=== PATIENT | female | born 1980 | race Caucasian/White ===

== ENCOUNTER 2016-06-04 13:53 | Emergency (ER) | payer OTHER ==
[~2016-06-04] VITALS: Ht 160 cm; Wt 70.5 kg
[~2016-06-04 13:53] MED LIST: AMITIZA24 MICROGR PO; ANTIVERT25 MG PO; ASCORBIC ACID500 M3 PO; CARAFATE1 GM PO; CYTOTEC200 MCG PO; DEBROX15 ML LEFT EAR; DOXYCYCLINE HY100 M3 PO; ENDOCET 5-3251 EACH PO; FEOSOL325 MG PO; FIORICET,ESG1 TABLET PO; FLONASE16 G1 BOTH NARES; FOLIC ACID1 MG PO; IBUPROFEN800 MG PO; IRON325 M1 PO; KEFLEX500 MG PO; MOTRIN600 MG PO; MOTRIN800 MG PO; MUCUS ER600 MG PO; NORCO 5/3251 TABLET PO; OLANZAPINE2.5 MG PO; PREDNISONE20 MG PO; PRENATAL VITAM1 EAC3 PO; PROMETHAZINE HC25 M1 PO; PROZAC20 MG PO; REGLAN10 MG PO; SEROQUEL12.5 MG PO; THYROID MEDICATION PO; TORADOL10 MG PO; VENTOLIN HFA18 GM IH; ZOFRAN ODT4 MG PO; ZOFRAN4 MG PO; ZYPREXA7.5 MG PO; ZYRTEC10 M2 PO; no home meds
[2016-06-04 14:49] LABS: ADD MIUA? NO; BILIRUBIN NEGATIVE; BLOOD NEGATIVE; GLUCOSE (STRIP) NEGATIVE; KETONES NEGATIVE; LEUKOCYTES NEGATIVE; NITRITE NEGATIVE; PROTEIN (STRIP) NEGATIVE; SPECIFIC GRAVITY 1.016 (1.000-1.030); UROBILINOGEN 0.2 MG/DL (0.2-1.0)
[2016-06-04 14:54] LABS: COLOR LT YELLOW ((YELLOW))
[2016-06-04 14:55] LABS: HEMATOCRIT 35.8 % (36.0-46.0); MCH 26.7 PG (29.0-34.0); MCHC 34.4 G/DL (30.0-36.0); MCV 77.7 FL (83-99); MEAN PLAT.VOLUME 11.2 uM^3 (9.5-12.4); PLATELET COUNT 251 K/uL (156-360); RBC DIS.WIDTH-CV 16.2 % (11.8-14.6); RBC DIS.WIDTH-SD 44.4 % (39-53); RED BLOOD COUNT 4.61 M/uL (3.80-5.20); WHITE BLOOD COUNT 9.3 K/uL (4.1-10.2)
[2016-06-04 14:59] LABS: EOSINOPHIL (%) 1.1 % (0-5); EOSINOPHIL COUNT 0.1 K/uL (0-0.3); IMMATURE GRANULOCYTE (%) 0.1 % (0.0-0.7); IMMATURE GRANULOCYTE COUNT 0.1 K/uL; LYMPHOCYTE COUNT 2.2 K/uL (1.0-2.8); MONOCYTE (%) 7.3 % (3-12); MONOCYTE COUNT 0.7 K/uL (0-0.8); NEUTROPHIL (%) 67.3 % (45-76); NEUTROPHIL COUNT 6.3 K/uL (1.8-6.4)
[2016-06-04 15:04] LABS: CHLORIDE 107 mEq/L (99-109); POTASSIUM 4.7 mEq/L (3.7-5.4); SODIUM 135 mEq/L (136-147)
[2016-06-04 15:06] LABS: GLUCOSE 88 mg/dL (70-99)
[2016-06-04 15:07] LABS: ANION GAP 8 MEQ/L (2-14)
[2016-06-04 15:10] LABS: GFR ESTIMATE (CALCULATED) > 59 mL/min/
[2016-06-04 15:11] LABS: UREA NITROGEN (BUN) 10 mg/dL (9-23)
[2016-06-04 16:45] VITALS: BP 122/84
== END 2016-06-04 16:53 | disposition home or self-care (01) ==
LOC: EME 13:53
PROVIDERS: Physician Assistant
DX: O21.0 Mild hyperemesis gravidarum (principal); Z3A.10 10 weeks gestation of pregnancy; Z87.891 Personal history of nicotine dependence
CPT/HCPCS: 80048; 81003; 84443; 85025; 99281; 99285; J2405; J7030

== ENCOUNTER 2016-07-27 20:41 | Emergency (ER) | payer OTHER ==
[~2016-07-27] VITALS: Ht 160 cm; Wt 70.7 kg
[2016-07-27 21:14] LABS: HEMATOCRIT 35.3 % (36.0-46.0); MCH 27.2 PG (29.0-34.0); MCHC 32.9 G/DL (30.0-36.0); MCV 82.7 FL (83-99); PLATELET COUNT 218 K/uL (156-360); RBC DIS.WIDTH-SD 48.3 % (39-53); RED BLOOD COUNT 4.27 M/uL (3.80-5.20); WHITE BLOOD COUNT 10.8 K/uL (4.1-10.2)
[2016-07-27 21:36] LABS: CHLORIDE 106 mEq/L (99-109); POTASSIUM 3.6 mEq/L (3.7-5.4); SODIUM 136 mEq/L (136-147)
[2016-07-27 21:37] LABS: GLUCOSE 96 mg/dL (70-99)
[2016-07-27 21:39] LABS: ANION GAP 8 MEQ/L (2-14)
[2016-07-27 21:41] LABS: GFR ESTIMATE (CALCULATED) > 59 mL/min/
[2016-07-27 21:42] LABS: UREA NITROGEN (BUN) 9 mg/dL (9-23)
[2016-07-27 22:14] LABS: ADD MIUA? NO; BILIRUBIN NEGATIVE; BLOOD NEGATIVE; COLOR STRAW ((YELLOW)); GLUCOSE (STRIP) NEGATIVE; KETONES NEGATIVE; LEUKOCYTES NEGATIVE; NITRITE NEGATIVE; PROTEIN (STRIP) NEGATIVE; SPECIFIC GRAVITY 1.005 (1.000-1.030); UCUL ADDED? NO; UROBILINOGEN 0.2 MG/DL (0.2-1.0)
[2016-07-27] MEDS ORDERED: ESCITALOPRAM OXA5 MG PO (23:08)
[2016-07-27] MEDS ORDERED: LEVOTHYROXINE75 MCG PO (23:08)
[2016-07-27 23:41] LABS: TOTAL BILIRUBIN 0.5 mg/dL (0.0-1.0)
[2016-07-27 23:42] LABS: ALKALINE PHOSPHATASE 59 IU/L (3-129)
[2016-07-27 23:45] LABS: DIRECT BILIRUBIN 0.2 mg/dL (0.0-0.3)
[2016-07-27 23:46] LABS: LIPASE 11 U/L (1.0-51.0)
[2016-07-28 00:08] LABS: QUANTITATIVE HCG 21138.4 MIU/ML
[2016-07-28 01:18] VITALS: BP 110/75
== END 2016-07-28 01:20 | disposition home or self-care (01) ==
LOC: EME 20:41
DX: O21.8 Other vomiting complicating pregnancy (principal); O99.012 Anemia complicating pregnancy, second trimester; O26.892 Other specified pregnancy related conditions, second trimester; R51 Headache; R42 Dizziness and giddiness; O09.522 Supervision of elderly multigravida, second trimester; Z3A.17 17 weeks gestation of pregnancy; Z87.891 Personal history of nicotine dependence
CPT/HCPCS: 80048; 80076; 81003; 83690; 84702; 85027; 99281; 99285; J2405; J7030

== ENCOUNTER 2016-08-20 09:02 | Emergency (ER) | payer OTHER ==
[~2016-08-20] VITALS: Ht 160 cm; Wt 71.4 kg
[~2016-08-20 09:02] MED LIST changes: +ESCITALOPRAM OXA5 MG PO; +LEVOTHYROXINE75 MCG PO
[2016-08-20 10:12] LABS: ADD MIUA? YES; BILIRUBIN NEGATIVE; BLOOD NEGATIVE; GLUCOSE (STRIP) NEGATIVE; KETONES NEGATIVE; LEUKOCYTES NEGATIVE; NITRITE NEGATIVE; PROTEIN (STRIP) NEGATIVE; SPECIFIC GRAVITY 1.005 (1.000-1.030); UROBILINOGEN 0.2 MG/DL (0.2-1.0)
[2016-08-20 10:13] LABS: COLOR YELLOW ((YELLOW))
[2016-08-20 10:17] LABS: BACTERIA RARE /HPF; EPITHELIAL CELLS RARE /HPF; MUCUS NONE SEEN /LPF; RED BLOOD CELLS 0-5 /HPF (0-5); UCUL ADDED? NO; WHITE BLOOD CELLS 0-5 /HPF (0-5)
[2016-08-20 10:37] LABS: HEMATOCRIT 30.7 % (36.0-46.0); MCH 28.3 PG (29.0-34.0); MCHC 33.2 G/DL (30.0-36.0); MCV 85.3 FL (83-99); PLATELET COUNT 189 K/uL (156-360); RBC DIS.WIDTH-SD 45.8 % (39-53); WHITE BLOOD COUNT 8.4 K/uL (4.1-10.2)
[2016-08-20 10:51] LABS: CHLORIDE 110 mEq/L (99-109); POTASSIUM 3.9 mEq/L (3.7-5.4); SODIUM 138 mEq/L (136-147)
[2016-08-20 10:53] LABS: GLUCOSE 80 mg/dL (70-99)
[2016-08-20 10:54] LABS: ANION GAP 6 MEQ/L (2-14)
[2016-08-20 10:55] LABS: TOTAL BILIRUBIN 0.4 mg/dL (0.0-1.0)
[2016-08-20 10:57] LABS: ALKALINE PHOSPHATASE 49 IU/L (3-129); GFR ESTIMATE (CALCULATED) > 59 mL/min/
[2016-08-20 10:58] LABS: UREA NITROGEN (BUN) 4 mg/dL (9-23)
[2016-08-20 12:57] VITALS: BP 96/71
== END 2016-08-20 12:59 | disposition home or self-care (01) ==
LOC: EME 09:02 → EXP 09:02
PROVIDERS: Nurse Practitioner Family
DX: O99.012 Anemia complicating pregnancy, second trimester (principal); R53.83 Other fatigue; J30.2 Other seasonal allergic rhinitis; Z3A.20 20 weeks gestation of pregnancy; J45.909 Unspecified asthma, uncomplicated; K21.9 Gastro-esophageal reflux disease without esophagitis; E03.9 Hypothyroidism, unspecified; Z87.891 Personal history of nicotine dependence
CPT/HCPCS: 80053; 81003; 84443; 85027; 93005; 99281; 99284; J7030

== ENCOUNTER 2016-09-14 17:31 | Emergency (ER) | payer OTHER ==
[~2016-09-14] VITALS: Ht 160 cm; Wt 74.3 kg
[2016-09-14 18:44] LABS: HEMATOCRIT 33.7 % (36.0-46.0); MCH 29.3 PG (29.0-34.0); MCHC 33.5 G/DL (30.0-36.0); MCV 87.3 FL (83-99); MEAN PLAT.VOLUME 11.3 uM^3 (9.5-12.4); PLATELET COUNT 217 K/uL (156-360); RBC DIS.WIDTH-CV 15.2 % (11.8-14.6); RBC DIS.WIDTH-SD 47.8 % (39-53); RED BLOOD COUNT 3.86 M/uL (3.80-5.20); WHITE BLOOD COUNT 8.4 K/uL (4.1-10.2)
[2016-09-14 18:48] LABS: ADD MIUA? YES; BILIRUBIN NEGATIVE; BLOOD NEGATIVE; COLOR YELLOW ((YELLOW)); GLUCOSE (STRIP) NEGATIVE; KETONES NEGATIVE; LEUKOCYTES NEGATIVE; NITRITE NEGATIVE; PROTEIN (STRIP) NEGATIVE; SPECIFIC GRAVITY 1.008 (1.000-1.030); UROBILINOGEN 0.2 MG/DL (0.2-1.0)
[2016-09-14 18:53] LABS: CHLORIDE 108 mEq/L (99-109); POTASSIUM 3.7 mEq/L (3.7-5.4); SODIUM 137 mEq/L (136-147)
[2016-09-14 18:54] LABS: BACTERIA RARE /HPF; EPITHELIAL CELLS 1+ /HPF; MUCUS TRACE /LPF; RED BLOOD CELLS NONE SEEN /HPF (0-5); UCUL ADDED? NO; WHITE BLOOD CELLS 0-5 /HPF (0-5)
[2016-09-14 18:55] LABS: GLUCOSE 100 mg/dL (70-99)
[2016-09-14 18:56] LABS: ANION GAP 8 MEQ/L (2-14)
[2016-09-14 18:57] LABS: TOTAL BILIRUBIN 0.2 mg/dL (0.0-1.0)
[2016-09-14 18:58] LABS: ALKALINE PHOSPHATASE 64 IU/L (3-129)
[2016-09-14 18:59] LABS: GFR ESTIMATE (CALCULATED) > 59 mL/min/
[2016-09-14 19:00] LABS: UREA NITROGEN (BUN) 7 mg/dL (9-23)
[2016-09-14 19:55] VITALS: BP 110/80
== END 2016-09-14 19:53 | disposition home or self-care (01) ==
LOC: EXP 17:31 → EME 17:31 → EXP 19:53
PROVIDERS: Physician Assistant
DX: O9A.212 Injury, poisoning and certain other consequences of external causes complicating pregnancy, second trimester (principal); R53.83 Other fatigue; R55 Syncope and collapse; R42 Dizziness and giddiness; R51 Headache; R06.02 Shortness of breath; T50.A95A Adverse effect of other bacterial vaccines, initial encounter; O21.8 Other vomiting complicating pregnancy; O99.282 Endocrine, nutritional and metabolic diseases complicating pregnancy, second trimester; E03.9 Hypothyroidism, unspecified; O09.522 Supervision of elderly multigravida, second trimester; Z3A.25 25 weeks gestation of pregnancy; Z87.891 Personal history of nicotine dependence
CPT/HCPCS: 80053; 81003; 85027; 99281; 99284; J2765; J7030

== ENCOUNTER → 2016-10-09 | Outpatient (CLI) | payer OTHER ==
[~2016-10-09] VITALS: Ht 160 cm; Wt 75.0 kg
[~2016-10-09] MED LIST changes: +FEROSUL325 MG PO; +LEVO-T100 MCG PO; +LEXAPRO10 MG PO
[2016-10-09 11:25] VITALS: BP 109/69
== END | disposition home or self-care (01) ==
LOC: IVINF 11:00
DX: Z31.82 Encounter for Rh incompatibility status (principal); Z3A.28 28 weeks gestation of pregnancy; Z67.11 Type A blood, Rh negative
CPT/HCPCS: 96372; J2790

== ENCOUNTER 2016-11-18 05:36 | Emergency (ER) | payer OTHER ==
[~2016-11-18] VITALS: Ht 160 cm; Wt 80.5 kg
[2016-11-18 05:40] VITALS: BP 108/80
[2016-11-19] MEDS ORDERED: IRON325 M1 PO (20:16)
== END 2016-11-18 07:19 | disposition left against medical advice (07) ==
LOC: EME 05:36
DX: O99.283 Endocrine, nutritional and metabolic diseases complicating pregnancy, third trimester (principal); E86.0 Dehydration; R51 Headache; R11.0 Nausea; O09.523 Supervision of elderly multigravida, third trimester; Z3A.33 33 weeks gestation of pregnancy; E03.9 Hypothyroidism, unspecified; Z87.891 Personal history of nicotine dependence
CPT/HCPCS: 80048; 81003; 85027; 99281; 99283

== ENCOUNTER 2016-11-19 11:20 | Outpatient (CLI) | payer OTHER ==
[2016-11-19 11:38] VITALS: BP 112/70
[2016-11-19 13:14] LABS: ADD MIUA? NO; BILIRUBIN NEGATIVE; BLOOD NEGATIVE; COLOR STRAW ((YELLOW)); GLUCOSE (STRIP) NEGATIVE; KETONES NEGATIVE; LEUKOCYTES NEGATIVE; NITRITE NEGATIVE; PROTEIN (STRIP) NEGATIVE; SPECIFIC GRAVITY 1.004 (1.000-1.030); UCUL ADDED? NO; UROBILINOGEN 0.2 MG/DL (0.2-1.0)
[2016-11-19 13:27] LABS: ANION GAP 9 MEQ/L (2-14); CHLORIDE 106 MEQ/L (99-109); POTASSIUM 3.7 MEQ/L (3.7-5.4); SAMPLE HEMOLYSIS CHECK 0; SAMPLE ICTERIC CHECK 0; SAMPLE LIPEMIA CHECK 0; SODIUM 137 MEQ/L (136-147); TOTAL BILIRUBIN 0.4 MG/DL (0.0-1.0)
[2016-11-19 13:29] LABS: EOSINOPHIL (%) 0.6 % (0-5); EOSINOPHIL COUNT 0.1 K/uL (0-0.3); HEMATOCRIT 30.5 % (36.0-46.0); IMMATURE GRANULOCYTE (%) 2.5 % (0.0-0.7); IMMATURE GRANULOCYTE COUNT 0.3 K/uL; INSTRUMENT ABS NEUTROPHIL CT 8.6 K/uL; LYMPHOCYTE COUNT 1.8 K/uL (1.0-2.8); MCH 27.5 PG (29.0-34.0); MCHC 32.5 G/DL (30.0-36.0); MCV 84.7 FL (83-99); MEAN PLAT.VOLUME 11.6 uM^3 (9.5-12.4); MONOCYTE (%) 6.3 % (3-12); MONOCYTE COUNT 0.7 K/uL (0-0.8); NEUTROPHIL COUNT 8.6 K/uL (1.8-6.4); PLATELET COUNT 237 K/uL (156-360); RBC DIS.WIDTH-CV 14.6 % (11.8-14.6); RBC DIS.WIDTH-SD 44.4 % (39-53); WHITE BLOOD COUNT 11.5 K/uL (4.1-10.2)
[2016-11-19 13:33] LABS: ALKALINE PHOSPHATASE 96 IU/L (3-129); GFR ESTIMATE (CALCULATED) > 59 mL/min/; GLUCOSE 115 mg/dL (70-99); UREA NITROGEN (BUN) 7 mg/dL (9-23)
[2016-11-19 15:18] VITALS: BP 98/59
[2016-11-19 16:04] LABS: TROP-I INTERPRETATION NEGATIVE; TROPONIN-I < 0.01 ng/mL (0.0-0.30)
[2016-11-19 18:28] LABS: TROP-I INTERPRETATION NEGATIVE; TROPONIN-I < 0.01 ng/mL (0.0-0.30)
[2016-11-19] MEDS ORDERED: IRON325 M1 PO (20:16)
[2016-11-20 12:21] LABS: CHLAMYDIA TRACHOMATIS NEGATIVE; NEISSERIA GONORRHOEAE NEGATIVE
== END 2016-11-19 20:25 | disposition home or self-care (01) ==
LOC: LDRP-OP 11:20 → 2WEST 11:21
PROVIDERS: Internal Medicine Cardiovascular Disease; Nurse Practitioner
DX: O99.013 Anemia complicating pregnancy, third trimester (principal); D64.9 Anemia, unspecified; O26.893 Other specified pregnancy related conditions, third trimester; Z3A.34 34 weeks gestation of pregnancy; R07.9 Chest pain, unspecified; R06.02 Shortness of breath; R42 Dizziness and giddiness; R94.31 Abnormal electrocardiogram [ECG] [EKG]
CPT/HCPCS: 59025; 71020; 80053; 81003; 83880; 84439; 84443; 84484; 85025; 87491; 87591; 93005; G0378; J7120

== ENCOUNTER 2016-12-10 17:40 | Inpatient (IN) | payer OTHER ==
[~2016-12-10] VITALS: Ht 160 cm; Wt 79.8 kg
[2016-12-10 18:08] VITALS: BP 120/67
[2016-12-10 18:35] LABS: HEMATOCRIT 31.6 % (36.0-46.0); MCH 27.7 PG (29.0-34.0); MCHC 33.5 G/DL (30.0-36.0); MCV 82.7 FL (83-99); MEAN PLAT.VOLUME 10.7 uM^3 (9.5-12.4); PLATELET COUNT 217 K/uL (156-360); RBC DIS.WIDTH-CV 15.2 % (11.8-14.6); RBC DIS.WIDTH-SD 45.8 % (39-53); RED BLOOD COUNT 3.82 M/uL (3.80-5.20); WHITE BLOOD COUNT 11.4 K/uL (4.1-10.2)
[2016-12-10 18:56] VITALS: BP 112/74
[2016-12-10 18:57] LABS: BASOPHIL COUNT 0.1 K/uL (0-0.1); EOSINOPHIL (%) 1.1 % (0-5); EOSINOPHIL COUNT 0.1 K/uL (0-0.3); IMMATURE GRANULOCYTE (%) 2.6 % (0.0-0.7); IMMATURE GRANULOCYTE COUNT 0.3 K/uL; MONOCYTE (%) 8.4 % (3-12); NEUTROPHIL (%) 69.7 % (45-76)
[2016-12-10 19:21] LABS: ANION GAP 12 MEQ/L (2-14); CHLORIDE 104 MEQ/L (99-109); POTASSIUM 3.6 MEQ/L (3.7-5.4); SAMPLE HEMOLYSIS CHECK 0; SAMPLE ICTERIC CHECK 0; SAMPLE LIPEMIA CHECK 0; SODIUM 136 MEQ/L (136-147); TOTAL BILIRUBIN 0.4 MG/DL (0.0-1.0)
[2016-12-10 19:27] LABS: ALKALINE PHOSPHATASE 127 IU/L (3-129); GFR ESTIMATE (CALCULATED) > 59 mL/min/; GLUCOSE 73 mg/dL (70-99); UREA NITROGEN (BUN) 8 mg/dL (9-23)
[2016-12-10] MEDS ORDERED: IBUPROFEN800 MG PO (22:23)
[2016-12-10] MEDS ORDERED: ENDOCET 5-3251 EACH PO (22:23)
[2016-12-11] VITALS (10 sets, daily range): BP systolic 102–124; BP diastolic 59–79
[2016-12-11 06:01] LABS: BASOPHIL COUNT 0.1 K/uL (0-0.1); EOSINOPHIL (%) 0.8 % (0-5); EOSINOPHIL COUNT 0.1 K/uL (0-0.3); HEMATOCRIT 30.2 % (36.0-46.0); IMMATURE GRANULOCYTE (%) 1.3 % (0.0-0.7); IMMATURE GRANULOCYTE COUNT 0.2 K/uL; INSTRUMENT ABS NEUTROPHIL CT 10.6 K/uL; LYMPHOCYTE COUNT 2.2 K/uL (1.0-2.8); MCH 26.5 PG (29.0-34.0); MCHC 32.1 G/DL (30.0-36.0); MCV 82.5 FL (83-99); MEAN PLAT.VOLUME 11.2 uM^3 (9.5-12.4); MONOCYTE (%) 6.8 % (3-12); NEUTROPHIL (%) 74.9 % (45-76); NEUTROPHIL COUNT 10.6 K/uL (1.8-6.4); PLATELET COUNT 206 K/uL (156-360); RBC DIS.WIDTH-CV 15.2 % (11.8-14.6); RBC DIS.WIDTH-SD 45.5 % (39-53); RED BLOOD COUNT 3.66 M/uL (3.80-5.20); WHITE BLOOD COUNT 14.2 K/uL (4.1-10.2)
[2016-12-12 02:10] VITALS: BP 124/72
[2016-12-12 07:58] VITALS: BP 116/71
[2016-12-12 10:54] VITALS: BP 109/62
[2016-12-12 15:25] VITALS: BP 113/68
[2016-12-12 19:22] VITALS: BP 123/74
[2016-12-12 23:26] VITALS: BP 111/67
[2016-12-13 08:08] VITALS: BP 100/65
[2016-12-13] MEDS ORDERED: MACROBID100 MG PO (09:11)
[2016-12-13] MEDS ORDERED: MOTRIN800 MG PO (09:18)
== END 2016-12-13 10:36 | disposition home or self-care (01) | DRG 765 ==
LOC: LDRP-OP 17:40 → 2WEST 17:43 → LDRP-OP 01-25 21:24
PROVIDERS: Obstetrics & Gynecology
PROC: 10D00Z1 Extraction of Products of Conception, Low, Open Approach (ICD-10-PCS; principal; 2016-12-10)
DX: O34.211 Maternal care for low transverse scar from previous cesarean delivery (principal); O36.5930 Maternal care for other known or suspected poor fetal growth, third trimester, not applicable or unspecified; O99.02 Anemia complicating childbirth; D50.9 Iron deficiency anemia, unspecified; O26.62 Liver and biliary tract disorders in childbirth; K83.1 Obstruction of bile duct; O99.344 Other mental disorders complicating childbirth; F32.9 Major depressive disorder, single episode, unspecified; O99.284 Endocrine, nutritional and metabolic diseases complicating childbirth; E03.9 Hypothyroidism, unspecified; Z3A.37 37 weeks gestation of pregnancy; Z37.0 Single live birth
CPT/HCPCS: 36415; 80053; 84439; 84443; 85025; 85027; 85610; 85730; 86870; 86900; 86901; 86905; 86920; 87086; 88307; J0690; J2274; J2300; J2405; J7120

== ENCOUNTER 2016-12-16 00:20 | Emergency (ER) | payer OTHER ==
[~2016-12-16] VITALS: Ht 160 cm; Wt 79.6 kg
[~2016-12-16 00:20] MED LIST changes: +MACROBID100 MG PO
[2016-12-16 00:26] VITALS: BP 132/88
== END 2016-12-16 00:52 | disposition left against medical advice (07) ==
LOC: EME 00:20
DX: O90.2 Hematoma of obstetric wound (principal); Z53.21 Procedure and treatment not carried out due to patient leaving prior to being seen by health care provider
CPT/HCPCS: 80053; 81003; 84702; 85027

== ENCOUNTER 2016-12-16 21:27 | Emergency (ER) | payer OTHER ==
[~2016-12-16] VITALS: Ht 160 cm; Wt 77.0 kg
[2016-12-16 21:53] LABS: HEMATOCRIT 30.9 % (36.0-46.0); MCH 26.6 PG (29.0-34.0); MCV 83.1 FL (83-99); MEAN PLAT.VOLUME 10.3 uM^3 (9.5-12.4); PLATELET COUNT 257 K/uL (156-360); RBC DIS.WIDTH-CV 15.3 % (11.8-14.6); RBC DIS.WIDTH-SD 46.4 % (39-53); RED BLOOD COUNT 3.72 M/uL (3.80-5.20); WHITE BLOOD COUNT 9.3 K/uL (4.1-10.2)
[2016-12-16 22:02] LABS: CHLORIDE 109 mEq/L (99-109); POTASSIUM 3.5 mEq/L (3.7-5.4); SODIUM 142 mEq/L (136-147)
[2016-12-16 22:03] LABS: GLUCOSE 84 mg/dL (70-99)
[2016-12-16 22:05] LABS: ANION GAP 11 MEQ/L (2-14)
[2016-12-16 22:07] LABS: GFR ESTIMATE (CALCULATED) > 59 mL/min/
[2016-12-16 22:08] LABS: UREA NITROGEN (BUN) 9 mg/dL (9-23)
[2016-12-16 23:33] VITALS: BP 91/60
== END 2016-12-16 23:35 | disposition home or self-care (01) ==
LOC: EME 21:27
PROVIDERS: Emergency Medicine
DX: O99.89 Other specified diseases and conditions complicating pregnancy, childbirth and the puerperium (principal); R51 Headache; O98.53 Other viral diseases complicating the puerperium; B34.9 Viral infection, unspecified; E03.9 Hypothyroidism, unspecified; Z88.6 Allergy status to analgesic agent
CPT/HCPCS: 80048; 85027; 99281; 99285; J2765; J7030

== ENCOUNTER 2017-10-08 13:54 | Emergency (ER) | payer OTHER ==
[~2017-10-08] VITALS: Ht 160 cm; Wt 71.4 kg
[2017-10-08 14:57] LABS: APPEARANCE CLEAR ((CLEAR)); BILIRUBIN NEGATIVE; BLOOD NEGATIVE; COLOR STRAW ((YELLOW)); GLUCOSE (STRIP) NEGATIVE; KETONES NEGATIVE; LEUKOCYTES NEGATIVE; NITRITE NEGATIVE; PROTEIN (STRIP) NEGATIVE; SPECIFIC GRAVITY 1.003 (1.000-1.030); UCUL ADDED? NO; UROBILINOGEN 0.2 MG/DL (0.2-1.0)
[2017-10-08 15:04] LABS: HEMATOCRIT 33.1 % (36.0-46.0); HEMOGLOBIN 10.9 G/DL (11.9-15.5); MCH 25.4 PG (29.0-34.0); MCHC 32.9 G/DL (30.0-36.0); MCV 77.2 FL (83-99); PLATELET COUNT 266 K/uL (156-360); RBC DIS.WIDTH-CV 15.7 % (11.8-14.6); RBC DIS.WIDTH-SD 43.6 % (39-53); RED BLOOD COUNT 4.29 M/uL (3.80-5.20)
[2017-10-08 15:09] LABS: ALBUMIN 4.5 g/dL (3.2-4.8); CHLORIDE 107 mEq/L (99-109); POTASSIUM 4.3 mEq/L (3.7-5.4); SODIUM 140 mEq/L (136-147)
[2017-10-08 15:11] LABS: GLUCOSE 97 mg/dL (70-99); TOTAL PROTEIN 7.7 g/dL (6.4-8.3)
[2017-10-08 15:13] LABS: TOTAL BILIRUBIN 0.5 mg/dL (0.0-1.0)
[2017-10-08 15:15] LABS: ALKALINE PHOSPHATASE 47 IU/L (3-129); CREATININE 0.7 mg/dL (0.6-1.3); GFR ESTIMATE (CALCULATED) > 59 mL/min/
[2017-10-08 15:16] LABS: UREA NITROGEN (BUN) 10 mg/dL (9-23)
[2017-10-08 15:17] LABS: AST (GOT) 19 IU/L (2-34)
[2017-10-08 15:18] LABS: ALT (GPT) 17 IU/L (3-49)
[2017-10-08 15:23] LABS: QUANTITATIVE HCG < 4.0 MIU/ML
[2017-10-08] MEDS ORDERED: ZOFRAN ODT4 MG PO (17:15)
[2017-10-08] MEDS ORDERED: BENTYL10 MG PO (17:15)
[2017-10-08 17:25] VITALS: BP 128/88
== END 2017-10-08 17:27 | disposition home or self-care (01) ==
LOC: EME 13:54
PROVIDERS: Physician Assistant Medical
DX: R10.30 Lower abdominal pain, unspecified (principal); R31.9 Hematuria, unspecified; K21.9 Gastro-esophageal reflux disease without esophagitis; J45.909 Unspecified asthma, uncomplicated; E03.9 Hypothyroidism, unspecified; F41.9 Anxiety disorder, unspecified; F31.9 Bipolar disorder, unspecified; F17.200 Nicotine dependence, unspecified, uncomplicated; Z86.19 Personal history of other infectious and parasitic diseases; Z98.890 Other specified postprocedural states; Z91.02 Food additives allergy status; Z88.5 Allergy status to narcotic agent; Z88.1 Allergy status to other antibiotic agents
CPT/HCPCS: 74176; 80053; 81003; 84702; 85027; 99281; 99284

== ENCOUNTER 2017-12-18 21:42 | Emergency (ER) | payer OTHER ==
[~2017-12-18] VITALS: Ht 160 cm; Wt 73.5 kg
[~2017-12-18 21:42] MED LIST changes: +BENTYL10 MG PO
[2017-12-18 23:33] LABS: HEMATOCRIT 34.4 % (36.0-46.0); HEMOGLOBIN 11.2 G/DL (11.9-15.5); MCH 25.7 PG (29.0-34.0); MCHC 32.6 G/DL (30.0-36.0); MCV 79.1 FL (83-99); PLATELET COUNT 241 K/uL (156-360); RBC DIS.WIDTH-CV 14.8 % (11.8-14.6); RBC DIS.WIDTH-SD 43.1 % (39-53); RED BLOOD COUNT 4.35 M/uL (3.80-5.20); WHITE BLOOD COUNT 7.1 K/uL (4.1-10.2)
[2017-12-18 23:46] LABS: ALBUMIN 4.4 g/dL (3.2-4.8)
[2017-12-18 23:47] LABS: CHLORIDE 111 mEq/L (99-109); POTASSIUM 3.8 mEq/L (3.7-5.4); SODIUM 141 mEq/L (136-147)
[2017-12-18 23:49] LABS: GLUCOSE 94 mg/dL (70-99); TOTAL PROTEIN 7.6 g/dL (6.4-8.3)
[2017-12-18 23:51] LABS: TOTAL BILIRUBIN 0.3 mg/dL (0.0-1.0)
[2017-12-18 23:52] LABS: ALKALINE PHOSPHATASE 46 IU/L (3-129)
[2017-12-18 23:53] LABS: CREATININE 0.7 mg/dL (0.6-1.3); GFR ESTIMATE (CALCULATED) > 59 mL/min/
[2017-12-18 23:54] LABS: AST (GOT) 18 IU/L (2-34); UREA NITROGEN (BUN) 10 mg/dL (9-23)
[2017-12-18 23:55] LABS: ALT (GPT) 14 IU/L (3-49)
[2017-12-18 23:56] LABS: CREATINE KINASE 101 IU/L (1-294)
[2017-12-19 00:01] LABS: QUANTITATIVE HCG < 4.0 MIU/ML
[2017-12-19 00:27] LABS: APPEARANCE CLEAR ((CLEAR)); BILIRUBIN NEGATIVE; BLOOD NEGATIVE; COLOR COLORLESS ((YELLOW)); GLUCOSE (STRIP) NEGATIVE; KETONES NEGATIVE; LEUKOCYTES NEGATIVE; NITRITE NEGATIVE; PROTEIN (STRIP) NEGATIVE; SPECIFIC GRAVITY 1.005 (1.000-1.030); UCUL ADDED? NO; UROBILINOGEN 0.2 MG/DL (0.2-1.0)
[2017-12-19 01:38] VITALS: BP 151/95
[2017-12-19 07:52] LABS: THYROTROPIN (TSH) 2.1 MIU/L (0.4-5.5)
== END 2017-12-19 01:40 | disposition home or self-care (01) ==
LOC: EME 21:42
PROVIDERS: Physician Assistant
DX: M79.1 Myalgia (principal); R53.1 Weakness; R25.2 Cramp and spasm; T43.205A Adverse effect of unspecified antidepressants, initial encounter; R51 Headache; E03.9 Hypothyroidism, unspecified; Z72.0 Tobacco use
CPT/HCPCS: 70450; 80053; 81003; 82550; 84443; 84702; 85027; 99281; 99284; J7030